=== PATIENT | male | born 1940 | race Caucasian/White ===

== ENCOUNTER 2018-01-07 05:29 | Inpatient (IN) | payer OTHER ==
[2018-01-07] MEDS ORDERED: ACETAMINOPHEN 500 MG TAB PO ONE (05:54)
[2018-01-07] MEDS ORDERED: ceFAZolin 2 GM/DEXTROSE 100 ML IV ONE (05:54)
[2018-01-07] MEDS ORDERED: GABAPENTIN 300 MG CAP PO ONE (05:54)
[2018-01-07] MEDS ORDERED: LR 1,000 ML IV ONE (05:56)
[2018-01-07] MEDS ORDERED: *PREOP 1000MG*TRANEX ACID/NS 100 ML IV ONE (06:00)
[2018-01-07] MEDS ORDERED: TRANEXAMIC ACID 1,000 MG in NS (SYRINGE) 50 ML IV ONE (06:00)
[2018-01-07] MEDS ORDERED: THROMBIN (BOVINE) 20,000 UNIT VIAL TP ONE (06:37)
[2018-01-07] MEDS ORDERED: BUPIVACAINE 0.25% 30 ML SDV ONE ×3 (06:37→12:18)
[2018-01-07] MEDS ORDERED: CHLORHEXIDINE GLUC HIBICLENS 118 ML BTL TP ONE (06:38)
[2018-01-07] MEDS ORDERED: EPINEPHrine 1 MG/ML INJ ONE ×2 (06:38→10:53)
[2018-01-07] MEDS ORDERED: BACITRACIN 50,000 UNITS/10 ML SYR IRR ONE (06:38)
--- NOTE | 2018-01-07 06:49 | PDANEPAE ---
ANE History of Present Illness C2-3 ANE Past Medical History - Cardiovascular History Hx Hypertension: Yes Hx Arrhythmias: No Hx Chest Pain: No Hx Coronary Artery / Peripheral Vascular Disease: No Hx CHF / Valvular Disease: No Hx Palpitations: No - Pulmonary History Hx COPD: No Hx Asthma/Reactive Airway Disease: No Hx Recent Upper Respiratory Infection: No Hx Oxygen in Use at Home: No Hx Sleep Apnea: No Sleep Apnea Screening Result - Last Documented: Positive - Neurologic History Hx Cerebrovascular Accident: No Hx Seizures: No Hx Dementia: No - Endocrine History Hx Diabetes: No - Renal History Hx Renal Disorders: No Renal History Comment: left kidney removed - Liver History Hx Hepatic Disorders: No - Neurological & Psychiatric Hx Hx Neurological and Psychiatric Disorders: Yes Neurological / Psychiatric History Comment: neck problems - Cancer History Hx Cancer: Yes Cancer History Comment: kidney,prostate - Congenital Disorder History Hx Congenital Disorders: No - GI History Hx Gastrointestinal Disorders: Yes Gastrointestinal History Comment: reflux - Other Health History Other Health History: swallowing difficulty since previous fusion. ent yesterday,ears itch,[place] - Chronic Pain History Chronic Pain: No - Surgical History Prior Surgeries: 1981 gallbladder. 1995 renal cell ca. 2005. 2006 cervical fusion. 2008 rotator cuff. 2012 R TKA. HERNIA REPAIR 2014. 2014 L TKA, radiation prostate CA ANE Review of Systems Review of Systems: - Exercise capacity Exercise capacity: >=4 METS METS (RN): 4 METS ANE Patient History - Allergies Allergies/Adverse Reactions: No Known Allergies Allergy (Verified 12/21/17 16:56) - Home Medications Home Medications: Lisinopril [Zestril 20 mg (*)] 20 mg PO DAILY 12/21/17 [Last Taken 01/06/18] Zolpidem Tartrate [Ambien] 10 mg PO HS 12/21/17 [Last Taken 01/05/18] - NPO status NPO Since - Liquids (Date): 01/06/18 NPO Since - Liquids (Time): 21:45 NPO Since - Solids (Date): 01/06/18 NPO Since - Solids (Time): 18:00 - Smoking Hx Smoking Status: Former smoker - Family Anes Hx Family Hx Anesthesia Complications: none ANE Labs/Vital Signs - Vital Signs Blood Pressure: 157/89 Heart Rate: 65 Respiratory Rate: 16 O2 Sat (%): 93 Height: 172.72 cm Weight: 81.647 kg ANE Physical Exam - Airway Neck exam: FROM Mallampati Score: Class 2 - Pulmonary Pulmonary: clear to auscultation - Cardiovascular Cardiovascular: regular rate and rhythym - ASA Status ASA Status: II ANE Anesthesia Plan Anesthesia Plan: general endotracheal anesthesia
[2018-01-07] MEDS ORDERED: DEXAMETHASONE 4 MG/ML VIAL IVP PRN (06:50)
[2018-01-07] MEDS ORDERED: oxyCODONE IR 5 MG TAB PO PRN ×2 (06:50→12:39)
[2018-01-07] MEDS ORDERED: fentaNYL 100 MCG/2 ML INJ IVP PRN (06:50)
[2018-01-07] MEDS ORDERED: MIDAZOLAM 2 MG/2 ML VIAL IVP ONE (06:50)
[2018-01-07] MEDS ORDERED: ONDANSETRON 4 MG/2 ML VIAL IVP PRN ×2 (06:50→12:39)
[2018-01-07] MEDS ORDERED: ALBUTEROL 3 ML DEYVIAL IH PRN (06:50)
[2018-01-07] MEDS ORDERED: NALOXONE HCL 0.4 MG/ML INJ IVP PRN ×2 (06:50→12:39)
[2018-01-07] MEDS ORDERED: REMIFENTANIL HCL 2 MG VIAL ONE (06:55)
[2018-01-07] MEDS ORDERED: HYDROmorphONE/DILAUDID 2 MG/ML INJ ONE (06:57)
[2018-01-07] MEDS ORDERED: PROPOFOL/EMULSION 500 MG/50 ML BOTTLE IV ONE ×4 (06:59→11:04)
[2018-01-07] MEDS ORDERED: HYDROmorphONE/DILAUDID 1 MG/ML INJ IVP PRN ×2 (07:00→12:39)
--- NOTE | 2018-01-07 07:00 | PDHPUP ---
History & Physical Update H&P update statement: This history and physical update is based on an assessment of the patient which was completed after admission or registration (within 24 hours), but prior to the surgery/procedure. H&P update: H&P reviewed & patient examined, no change in patient's condition since H&P completed
[2018-01-07] MEDS ORDERED: SUCCINYLCHOLINE CHLORIDE 200 MG/10 ML SYR IVP ONE (07:05)
[2018-01-07] MEDS ORDERED: DEXAMETHASONE 4 MG/ML VIAL ONE ×2 (07:06)
[2018-01-07] MEDS ORDERED: ONDANSETRON 4 MG/2 ML VIAL ONE (07:06)
[2018-01-07] MEDS ORDERED: RANITIDINE 50 MG/2 ML VIAL ONE (07:06)
[2018-01-07] MEDS ORDERED: LIDOCAINE 2% 5 ML SDV ONE (07:06)
[2018-01-07] MEDS ORDERED: POVIDONE-IODINE 30 GM OINTTUBE TP ONE (10:00)
[2018-01-07] MEDS ORDERED: ceFAZolin 1 GM VIAL ONE (10:44)
[2018-01-07] MEDS ORDERED: THROMBIN (BOVINE) 5,000 UNIT VIAL TP ONE (11:12)
[2018-01-07] MEDS ORDERED: PHENYLEPHRINE HCL 100 MCG/ML SYR ONE (11:30)
[2018-01-07] MEDS ORDERED: MAGNESIUM HYDROXIDE 30 ML UDCUP PO PRN (12:39)
[2018-01-07] MEDS ORDERED: HYDROmorphONE/DILAUDID 6 MG/30 ML PCA IV PRN (12:39)
[2018-01-07] MEDS ORDERED: BISACODYL 10 MG SUPP PR PRN (12:39)
[2018-01-07] MEDS ORDERED: LACTULOSE 20 GM/30 ML UDCUP PO PRN (12:39)
[2018-01-07] MEDS ORDERED: ONDANSETRON DISINTEGRATING 4 MG TAB PO PRN (12:39)
[2018-01-07] MEDS ORDERED: diphenhydrAMINE 25 MG CAP PO PRN (12:39)
--- NOTE | 2018-01-07 12:46 | SOAPPROG ---
SOAP Progress Note Assessment/Plan: Assessment: 77 yo M sp C3-6 plate removal, C2/3 ACDF and C2/3 posterior decompression/fusion Plan: stable to 3N hard collar when out of bed lovenox starts POD #3 please call with neuro changes 01/07/18 12:45 Subjective: + neck pain, no arm pain Objective: Vital Signs Temp Pulse Resp BP Pulse Ox 36.7 C 65 16 157/89 H 93 01/07/18 06:04 01/07/18 06:49 01/07/18 06:49 01/07/18 06:49 01/07/18 06:49 somnolent PERRL, no facial droop MARLEEN x 4 + light touch ICD10 Worksheet Patient Problems: Problems Problem Status Onset Fusion of spine of cervical region Acute - ICD10 Problem Qualifiers (1) Fusion of spine of cervical region
--- NOTE | 2018-01-07 12:47 | POSTOPPROG ---
Post Op Note Date of Operation: 01/07/18 Surgeon: Edson Rodriguez Dinkey Skinner: Kendall Anesthesiologist: Raimundo Anesthesia: GET(General Endotracheal) Pre-op Diagnosis: C2/3 stenosis Post-op Diagnosis: same Indication: progressive myelopathy Procedure: plate removal, C2/3 ACDF, C2/3 posterior decompression/fusion Findings: DJD/stenosis Inf/Abcess present in the surg proc area at time of surgery?: No EBL: 100-500 (200 ml) Complications: None Drains: Alex Cherry (anterior/posterior)
--- NOTE | 2018-01-07 13:16 | GOP ---
[f rep st] OPERATIVE REPORT DATE OF OPERATION: 01/07/2018 SURGEON: Edson Rodriguez MD NEUROSURGEON: Edson Rodriguez MD METALS ANALYST: CARMEN Escobedo ANESTHESIA: General endotracheal. PREOPERATIVE DIAGNOSIS: 1. Severe cervical stenosis with spinal cord compression secondary to herniated disk and ligamentum flavum hypertrophy causing circumferential canal compromise at C2-3. 2. Progressive myelopathic symptoms. POSTOPERATIVE DIAGNOSIS: 1. Severe cervical stenosis with spinal cord compression secondary to herniated disk and ligamentum flavum hypertrophy causing circumferential canal compromise at C2-3. 2. Progressive myelopathic symptoms. PROCEDURE PERFORMED: 1. Removal of C3 through C6 anterior cervical plate and exploration of spinal fusion, with complete C2-3 anterior cervical diskectomy, and arthrodesis with an 11 mm structural PEEK interbody spacer and local autograft. 2. Placement of a 25 mm L and K CastleLoc-P anterior cervical plate at C2-3 with use of intraoperati ve microscopy and fluoroscopy. FINDINGS: ESTIMATED BLOOD LOSS: 200 cc. INDICATIONS: The patient is a 77-year-old man with progressive myelopathic symptoms secondary to a l arge disk herniation and ligamentum flavum hypertrophy at C2-3, causing severe central canal stenosis and spinal cord compression. He presents for circumferential decompression and stabilization in con junction with removal of the plate at C3 through C6. DESCRIPTION OF PROCEDURE: After informed consent was obtained, the patient was taken to the operatin g room and placed in the supine position with the head in the retractor system after basel ine neuro monitoring signals were obtained. The anterior cervical region was prepped and draped in a sterile fashion, and the prior incision from the old C3 through C6 fusion was incised and carried do wn to the platysmal layer, which was then incised using the monopolar electrocautery. The avascular plane between the sternocleidomastoid and carotid sheath laterally and the strap muscles, trachea, an d esophagus medially was carried down to the prevertebral fascia, which was carefully incised with Me tzenbaum sutures. There was an extensive amount of scar tissue, but the old plate at C3 through C6 w as carefully dissected out and removed in the standard fashion. The fusion was inspected and explore d and noted to be solid. A 2nd incision was then required more rostrally, and this was carried through the platysmal layer and the avascular plane, as well down to the prevertebral fascia and the C2-3 osteophyte was carefully i dentified and dissected out and removed. The Paris distraction pins were inserted at C2-3; and, und er high-power microscopic visualization, a complete diskectomy was performed with preparation of the endplates and removal of the posterior longitudinal ligament. Bilateral foraminotomies were performe d as well. There was significant epidural venous engorgement and bleeding that was controlled with G elfoam soaked in thrombin, which was then removed. Following adequate decompression of both the cent ral canal and bilateral neural foramina, the endplates were carefully prepared, and an appropriately- sized 11 mm structural PEEK interbody spacer was packed with local autograft in the center and was pl aced in the interspace at C2-3 under fluoroscopic image guidance. The distraction was removed, and a n appropriately-sized 25 mm L and K CastleLoc-P anterior cervical plate was then placed and secured w ith self-drilling screws. A drain was then placed; and, after verification of good position of the p late screws and interbody spacers using biplanar fluoroscopy, the subcutaneous and intramuscular tiss ues were re-infiltrated with local anesthesia, and the wound was closed in a layered fashion using in terrupted Vicryl sutures followed by Steri-Strips on the skin. COMPLICATIONS: None. DISPOSITION: The patient remained intubated and was repositioned for the posterior portion operation . /[id number]/MODL
[2018-01-07] MEDS ORDERED: LORazepam 2 MG/ML INJ ONE (13:45)
--- NOTE | 2018-01-07 13:50 | GOP ---
[f rep st] OPERATIVE REPORT DATE OF OPERATION: 01/07/2018 SURGEON: Edson Rodriguez MD NEUROSURGEON: Edson Rodriguez MD GRADE RECORDER: CARMEN Escobedo ANESTHESIA: General endotracheal. PREOPERATIVE DIAGNOSIS: 1. Severe cervical stenosis with spinal cord compression secondary to herniated disk and ligamentum flavum hypertrophy causing circumferential canal compromise at C2-3. 2. Progressive myelopathic symptoms. POSTOPERATIVE DIAGNOSIS: 1. Severe cervical stenosis with spinal cord compression secondary to herniated disk and ligamentum flavum hypertrophy causing circumferential canal compromise at C2-3. 2. Progressive myelopathic symptoms. PROCEDURE PERFORMED: C2-3 laminectomy for decompression of spinal canal/spinal cord with exploration of spinal fusion at C3 through C6. Placement of a posterior nonsegmental (pedicle screw and lateral mass screw), fixation at C2-3 with a C2-3 posterolateral fusion with local autograft. Use of intrao perative microscopy, fluoroscopy, and computer volumetric stereotactic navigation with intraoperative neurophysiologic testing. FINDINGS: ESTIMATED BLOOD LOSS: 100 cc. INDICATIONS: The patient is a 77-year-old man with progressive myelopathic symptoms secondary to a l arge disk herniation and ligamentum flavum hypertrophy at C2-3, causing severe central canal stenosis and spinal cord compression. He presents for circumferential decompression and stabilization in con junction with removal of the plate at C3 through C6. DESCRIPTION OF PROCEDURE: After the anterior portion of the procedure was completed, the patient was repositioned prone with the head in a Yo header dock. The posterior cervical and a reas were prepped and draped in sterile fashion. After fluoroscopic localization of the correct leve l, the subcutaneous and intramuscular tissues were infiltrated with local anesthesia. A midline linear incision was then created over the C2-3 spinous process. This was carried down to t he fascial layer, which was then incised using monopolar electrocautery and carried through the subpe riosteal plane along the spinous process and lamina bilaterally. Intraoperative fluoroscopy was agai n utilized to verify the correct levels. Following this, the dissection was carried out laterally ov er the facet joints. A retractor was inserted, and a C2-3 laminectomy was performed with preservatio n of the very rostral end of C2 for testing of the navigational frame. The arm of the navigational s ystem was then brought in and 3D reconstruction images sent to the [facility] station. Using computer v olumetric stereotactic navigation, pedicle screws were placed at C2 bilaterally and lateral mass scre w fixation at C3 bilaterally. Each individual screw was tested neurophysiologically with monopolar e lectrostimulation and interpretation of the potentials by the surgeon. The arm of the neuronavigatio Wanderlust system was then utilized to recreate 3D reconstructed images in order to verify good position of the screws. Following this, the facet joints were carefully drilled out at C2-3, and the local autog raft placed in the facets and out laterally, which was also drilled out. The rods were then placed a nd secured; and, after re-verification of good position of the screws, rods, interbody spacers, and p late, using biplanar fluoroscopy, a drain was placed. The subcutaneous and intramuscular tissues wer e re-infiltrated with local anesthesia, and the wound was closed in a layered fashion using interrupt ed Vicryl sutures followed by Steri-Strips on the skin. COMPLICATIONS: None. DISPOSITION: The patient is currently in the process of being repositioned for extubation. /[id number]/MODL
[2018-01-07] MEDS ORDERED: ceFAZolin 2 GM/DEXTROSE 100 ML IV SCH (14:00)
[2018-01-07] MEDS ORDERED: LORazepam 2 MG/ML INJ IVP ONE ×2 (14:15→15:45)
[2018-01-07] MEDS: POLYETHYLENE GLYCOL 3350 17 GM PKT PO SCH ×2 (15:04→21:30)
[2018-01-07] MEDS: ACETAMINOPHEN 500 MG TAB PO SCH ×2 (15:04→21:38)
[2018-01-07] MEDS: GABAPENTIN 300 MG CAP PO SCH ×2 (15:04→21:38)
[2018-01-07] MEDS: NS 1,000 ML IV SCH (15:04)
--- NOTE | 2018-01-07 16:10 | POSTANESTH ---
Post Anesthetic Evaluation Cardiovascular Status: Normal, Stable Respiratory Status: Normal, Stable Level of Consciousness/Mental Status: Can Participate in Eval, Alert and Oriented Pain Control: Adequate, Prn Tx Ordered Nausea/Vomiting Control: Adequate, Prn Tx Ordered Complications Possibly Related to Anesthesia: None Noted
[2018-01-07] MEDS: ceFAZolin 2 GM/DEXTROSE 100 ML IV SCH (18:07)
--- NOTE | 2018-01-07 19:15 | PDMN ---
Medical Necessity Medical necessity: [facility] IP only surgery; C3-6 plate removal, C2/3 ACDF & C2/3 posterior decompression/cervical fusion (cpt 22066)
[2018-01-07] MEDS: SENNOSIDES/DOCUSATE SODIUM TAB PO SCH (20:01)
[2018-01-07] MEDS: morphINE SR 15 MG TAB PO SCH (20:01)
[2018-01-07] MEDS: FAMOTIDINE 20 MG TAB PO SCH (20:01)
[2018-01-08] MEDS: ceFAZolin 2 GM/DEXTROSE 100 ML IV SCH (01:34)
[2018-01-08] MEDS: NS 1,000 ML IV SCH (04:56)
[2018-01-08] MEDS: GABAPENTIN 300 MG CAP PO SCH ×3 (05:22→22:01)
[2018-01-08] MEDS: METHOCARBAMOL 750 MG TAB PO PRN (05:24)
[2018-01-08 05:55] LABS: PLATELET COUNT 146 10^3/uL (150-400)
[2018-01-08] MEDS: ACETAMINOPHEN 500 MG TAB PO SCH ×3 (09:42→22:01)
[2018-01-08] MEDS: LISINOPRIL 20 MG TAB PO SCH (11:14)
[2018-01-08] MEDS: SENNOSIDES/DOCUSATE SODIUM TAB PO SCH ×2 (11:14→22:02)
[2018-01-08] MEDS: morphINE SR 15 MG TAB PO SCH ×2 (11:15→22:01)
[2018-01-08] MEDS: FAMOTIDINE 20 MG TAB PO SCH ×2 (11:16→22:02)
[2018-01-08] MEDS: POLYETHYLENE GLYCOL 3350 17 GM PKT PO SCH ×3 (11:21→22:03)
--- NOTE | 2018-01-08 12:01 | SOAPPROG ---
SOAP Progress Note Assessment/Plan: Assessment: 77 yo male POD #1 s/p C2/3 ACDF and posterior decompression fusion. Doing well Pain well controlled Dyshpagia as expected Plan: PT/OT/ST Continue ant/post LJ drains Soft texture diet. Cervical xrays today when he can tolerate it. 01/08/18 11:57 01/08/18 12:00 Subjective: Out of bed in chair. Pain well controlled. He has posterior neck "stiffness." Denies worsened symptoms Objective: Vital Signs Temp Pulse Resp BP Pulse Ox 37.1 C 61 18 127/76 H 98 01/08/18 07:47 01/08/18 07:47 01/08/18 07:47 01/08/18 11:14 01/08/18 07:47 Laboratory Results 01/08/18 05:21 01/08/18 05:21 01/07/18 01/08/18 01/09/18 05:59 05:59 05:59 Intake Total 2298 1383 Output Total 1200 Balance 1098 1383 Neuro WATKINS. sens +LT Alert and oriented x 4 follows commands Ant LJ: 60 ml Post LJ: 90 ml Dressing x 2 CDI ICD10 Worksheet Patient Problems: Problems Problem Status Onset Fusion of spine of cervical region Acute
--- NOTE | 2018-01-08 16:58 | ASMTCMCOM ---
CM Note CM Note Notes: Pt is s/p cervical fusion C2/3. PT/OT recommending SNF. Pt and his requesting Center at [facility] in [facility] as they live there. Sent referral via [facility]. Spoke with Admissions, pt is accepted. If he discharges over the weekend call [facility]fs[facility] [place] [phone]. No PASRR needed at this facility. CM will continue to follow. Date Signed: 01/08/2018 04:57 PM Electronically Signed By:ISMAEL Lopez
[2018-01-09] MEDS: GABAPENTIN 300 MG CAP PO SCH ×3 (05:52→21:18)
[2018-01-09] MEDS: ACETAMINOPHEN 500 MG TAB PO SCH ×3 (05:52→21:18)
[2018-01-09] MEDS: METHOCARBAMOL 750 MG TAB PO PRN (05:52)
--- NOTE | 2018-01-09 07:30 | SOAPPROG ---
SOAP Progress Note Assessment/Plan: Assessment: 77 yo male POD #2 s/p C2/3 ACDF and posterior decompression fusion. Doing well minimal pain today, just neck "stiffness" Dyshpagia as expected but able to eat Plan: PT/OT/ST d/c anterior drain (25), d/c posterior drain tomorrow (75) Soft texture diet. Cervical xrays show good alignment and intact hardware plan to d/c to SNF/rehab tomorrow 01/09/18 07:27 01/09/18 07:29 Subjective: no new events, doing well Objective: Vital Signs Temp Pulse Resp BP Pulse Ox 36.5 C 62 16 82/53 L 90 L 01/09/18 07:21 01/09/18 07:21 01/09/18 07:21 01/09/18 07:21 01/09/18 07:21 Laboratory Results 01/08/18 05:21 01/08/18 05:21 01/08/18 01/09/18 01/10/18 05:59 05:59 05:59 Intake Total 2298 1833 Output Total 1200 300 Balance 1098 1533 AAOx3, full strength and sensation, no drift, dressings c/d/i - Pending Discharge Pending Discharge Within 24 Hours: Yes Pending Discharge Date: 01/10/18 Pending Discharge Time: 11:00 ICD10 Worksheet Patient Problems: Problems Problem Status Onset Fusion of spine of cervical region Acute
[2018-01-09] MEDS ORDERED: NS 500 ML IV ONE (08:00)
[2018-01-09] MEDS: POLYETHYLENE GLYCOL 3350 17 GM PKT PO SCH ×3 (09:28→21:18)
[2018-01-09] MEDS: SENNOSIDES/DOCUSATE SODIUM TAB PO SCH ×2 (09:29→21:18)
[2018-01-09] MEDS: FAMOTIDINE 20 MG TAB PO SCH ×2 (09:29→21:18)
[2018-01-09] MEDS: morphINE SR 15 MG TAB PO SCH ×2 (09:32→23:15)
[2018-01-09] MEDS: LISINOPRIL 20 MG TAB PO SCH (09:32)
--- NOTE | 2018-01-09 15:39 | ASMTCMCOM ---
CM Note CM Note Notes: Pt and family had questions about transport to the Center at [facility] in [facility]. Spoke with Afsaneh in admissions. She clled a local [facility] compant, Billy, but they do not have any availability for tomorrow. She checked with [facility] and they would charge over $1,000. Spoke with pt and he will call his family to see if they are willing to do it. CM to follow. Date Signed: 01/09/2018 03:38 PM Electronically Signed By:Clementina Hirsch LCSW
[2018-01-10] MEDS: GABAPENTIN 300 MG CAP PO SCH ×3 (06:19→21:41)
[2018-01-10] MEDS: ACETAMINOPHEN 500 MG TAB PO SCH ×3 (06:19→21:40)
[2018-01-10] MEDS: POLYETHYLENE GLYCOL 3350 17 GM PKT PO SCH ×3 (08:30→21:41)
[2018-01-10] MEDS: ENOXAPARIN 40 MG/0.4 ML SYR SC SCH (08:30)
[2018-01-10] MEDS: SENNOSIDES/DOCUSATE SODIUM TAB PO SCH ×2 (08:30→21:40)
[2018-01-10] MEDS: FAMOTIDINE 20 MG TAB PO SCH ×2 (08:31→21:39)
[2018-01-10] MEDS: LISINOPRIL 20 MG TAB PO SCH (08:31)
[2018-01-10] MEDS: morphINE SR 15 MG TAB PO SCH ×2 (08:36→21:40)
--- NOTE | 2018-01-10 10:02 | SOAPPROG ---
SOAP Progress Note Assessment/Plan: Assessment: 77 yo male POD #3 s/p C2/3 ACDF and posterior decompression fusion. Doing well pain slightly worse today but tolerable Dyshpagia as expected but able to eat, switched to Dysphagia 2 diet Plan: PT/OT/ST both LJ drains out continue dysphagia 2 diet per speech therapy. Cervical xrays show good alignment and intact hardware plan to d/c to SNF/rehab Thursday01/10/18 10:00 Subjective: c/o slightly more neck pain/stiffness Objective: Vital Signs Temp Pulse Resp BP Pulse Ox 36.6 C 62 16 129/66 H 91 L 01/10/18 08:00 01/10/18 08:00 01/10/18 08:00 01/10/18 08:31 01/10/18 08:00 Laboratory Results 01/08/18 05:21 01/08/18 05:21 01/09/18 01/10/18 01/11/18 05:59 05:59 05:59 Intake Total 1833 Output Total 300 801 Balance 1533 -801 AAOx3, full strength and sensation, no drift, c-collar in place, dressings c/d/i - Pending Discharge Pending Discharge Within 24 Hours: Yes Pending Discharge Date: 01/11/18 Pending Discharge Time: 11:00 ICD10 Worksheet Patient Problems: Problems Problem Status Onset Fusion of spine of cervical region Acute
--- NOTE | 2018-01-10 12:14 | ASMTCMCOM ---
CM Note CM Note Notes: Spoke with Dr Chester re pt's d/c. He is keeping pt until tomorrow. D/C plan is to Center at [facility] in [place]. Spoke with Afsaneh who is their weekend liaison. They were prepared to accept him today however will keep him as pending for admission tomorrow. CM needs to call Admissions after 9:30 Thursday [phone] to discuss transportation. Apparently the [facility] has a contract with [facility] and Afsaneh thinks they will be able to arrange his transfer through them. The earlier in the day this is arranged, the better. Informed pt.. Date Signed: 01/10/2018 12:14 PM Electronically Signed By:ISMAEL Lopez
[2018-01-11] MEDS: GABAPENTIN 300 MG CAP PO SCH (05:35)
[2018-01-11] MEDS: ACETAMINOPHEN 500 MG TAB PO SCH ×2 (05:35→11:27)
[2018-01-11 07:20] VITALS: BP 123/76
--- NOTE | 2018-01-11 08:12 | NEUSURGPN ---
Date of Surgery: 01/07/18 Post Op Day: 4 Assessment/Plan: Assessment: 77 yo male POD #4 s/p C2/3 ACDF and posterior decompression fusion. Plan: PT/OT/ST continue dysphagia 2 diet per speech therapy. Cervical xrays show good alignment and intact hardware plan to d/c to SNF/rehab today, has prescriptions Discussed patient with Dr Jorge Subjective: Doing well, sitting in chair Objective: AxO x3 PERRLA 5/5 BUE Incision CDI, dressings CDI Collar in place Neuro Check Frequency: per routine Urinary Catheter in Place: No Catheter Insertion Date: 01/07/18 - Physician Discussed Patient with DrAdeline: Jennifer Neurosurgery Physical Exam - Vitals, I&O, Labs I and O 01/10/18 01/11/18 01/12/18 05:59 05:59 05:59 Intake Total 1625 Output Total 801 375 Balance -801 1250 Intake: Oral (ml) 1625 Output: Urine (ml) 801 375 Toilet 1 Urinal 800 375 Other: Intake Quantity Yes Sufficient Number of Voids Incontinence 1 Toilet 1 2 Urinal 1 Number of Stools Toilet 1 Vital Signs Temp Pulse Resp BP Pulse Ox 36.3 C 75 15 123/76 H 94 01/11/18 07:19 01/11/18 07:19 01/11/18 07:19 01/11/18 07:19 01/11/18 07:19 Laboratory Results 01/08/18 05:21 01/08/18 05:21 ICD10 Worksheet Patient Problems: Problems Problem Status Onset Fusion of spine of cervical region Acute
--- NOTE | 2018-01-11 08:17 | PDIAF ---
- Diagnosis Diagnosis: S/P ACDF C2-3, posterior C2-3 decompression and fusion Code Status: Full Code - Medication Management Discharge Medications: Medications to Continue on Transfer Lisinopril [Zestril 20 mg (*)] 20 mg PO DAILY 12/21/17 [Last Taken 01/06/18] Acetaminophen [Tylenol ES 500 mg (*)] 1,000 mg PO Q8HRS tab 01/11/18 [Last Taken Unknown] Methocarbamol [Robaxin 750 mg (*)] 750 mg PO QID PRN tab 01/11/18 [Last Taken Unknown] Sennosides/Docusate Sodium [Senokot-S] 1 - 2 tab PO BID tab 01/11/18 [Last Taken Unknown] morphINE SR [Ms Contin/Oramorph 15 mg (*)] 15 mg PO BID tab 01/11/18 [Last Taken Unknown] oxyCODONE IR [Oxycodone Ir (*)] 5 - 10 mg PO Q4HRS PRN tab 01/11/18 [Last Taken Unknown] Discharge Medications: Refer to the Discharge Home Medication list for PRN reason. PICC Care - Routine: N/A - Orders Services needed: Physical Therapy, Occupational Therapy Diet Recommendation: no restrictions on diet Diet Texture: Dysphagia 2 - Mechanically Altered - Chopped, Ground, Thin Liquids , Meds Whole in Puree Wound Care Instructions: Ok to shower daily Activity/Weight Bearing Restrictions: No bending or twisting Equipment: Wear cervical collar at all times Additional Instructions: No bending or twisting neck Do not lift greater than 10 pounds Wear cervical collar at all times - Follow Up Care Current Providers and Referrals: SIGIFREDO LY [Primary Care Provider] - Edson Rodriguez MD [Medical Doctor] - follow up in 2 weeks
[2018-01-11] MEDS: ENOXAPARIN 40 MG/0.4 ML SYR SC SCH (09:09)
[2018-01-11] MEDS: morphINE SR 15 MG TAB PO SCH (09:10)
[2018-01-11] MEDS: FAMOTIDINE 20 MG TAB PO SCH (09:10)
[2018-01-11] MEDS: SENNOSIDES/DOCUSATE SODIUM TAB PO SCH (09:13)
[2018-01-11] MEDS: POLYETHYLENE GLYCOL 3350 17 GM PKT PO SCH (09:13)
[2018-01-11] MEDS: LISINOPRIL 20 MG TAB PO SCH (09:14)
[2018-01-11] MEDS: METHOCARBAMOL 750 MG TAB PO PRN (11:28)
--- NOTE | 2018-01-11 11:51 | ASMTCMCOM ---
CM Note CM Note Notes: Pt medically stable for d/c to Center at [facility]. Orders sent in [employer]. MARY Paredes to call report. Pt family to transport. Pt has pt hard script narcotics and will give them to the facility. Date Signed: 01/11/2018 11:51 AM Electronically Signed By:ISMAEL Alegria
--- NOTE | 2018-01-11 15:42 | ASDISCHSUM ---
Discharge Information Plan Status:SNF Medically Cleared to Leave: Discharge Date:01/11/2018 11:37 AM D/C Disposition:[facility] Facility ADT D/C Disposition:[facility] Facility Projected Discharge Date:01/11/2018 11:00 AM Transportation at D/C:Family Discharge Delay Reason: Follow-Up Date:01/11/2018 11:00 AM Discharge Slot: Final Diagnosis: Placement Information Referral Type:*[facility]/SNF Referral ID:[id number] Provider Name:Heber Moreno Address 1:[address] Address 2: City:[place] Selection Factors: State:[place] Patient Contact Information Contact Name:MADHAVI Relationship: Address:[address] City:[place] Alternate Phone: State/Zip Code:[place] [address] Email: Financial Information Financial Class:Medicare Primary Plan Desc:MEDICARE INPATIENT Primary Plan Number:[id number] Secondary Plan Desc:[facility] Secondary Plan Number:[id number] Assessment Information [facility] CM Progress Note CM Note CM Note Notes: Pt is s/p cervical fusion C2/3. PT/OT recommending SNF. Pt and his requesting Center at [facility] in [facility] as they live there. Sent referral via [employer]. Spoke with Admissions, pt is accepted. If he discharges over the weekend call [facility] [place] [phone]. No PASRR needed at this facility. CM will continue to follow. Date Signed: 01/08/2018 04:57 PM Electronically Signed By:ISMAEL Lopez [facility] CM Progress Note CM Note CM Note Notes: Pt and family had questions about transport to the Center at [facility] in [facility]. Spoke with Afsaneh in admissions. She clled a local [facility] compant, Billy, but they do not have any availability for tomorrow. She checked with [facility] and they would charge over $1,000. Spoke with pt and he will call his family to see if they are willing to do it. CM to follow. Date Signed: 01/09/2018 03:38 PM Electronically Signed By:Clementina Hirsch LCSW [facility] CM Progress Note CM Note CM Note Notes: Spoke with Dr Nemo camejo pt's d/c. He is keeping pt until tomorrow. D/C plan is to Center at [facility] in [place]. Spoke with Afsaneh who is their weekend liaison. They were prepared to accept him today however will keep him as pending for admission tomorrow. CM needs to call Admissions after 9:30 Thursday [phone] to discuss transportation. Apparently the Center at [facility] has a contract with [facility] and Afsaneh thinks they will be able to arrange his transfer through them. The earlier in the day this is arranged, the better. Informed pt.. Date Signed: 01/10/2018 12:14 PM Electronically Signed By:ISMAEL Lopez [facility] CM Progress Note CM Note CM Note Notes: Pt medically stable for d/c to Center at [facility]. Orders sent in [employer]. RN Lena to call report. Pt family to transport. Pt has pt hard script narcotics and will give them to the facility. Date Signed: 01/11/2018 11:51 AM Electronically Signed By:ISMAEL Alegria Intervention Information Intervention Type:*IM-Signed Date of Service:01/08/2018 02:25 PM Patient Type:Inpatient Staff Member:Latonia Fuentes Hours: Discipline: Severity: Comment:
== END 2018-01-11 11:37 | DRG 454 ==
LOC: F3N 05:29
PROVIDERS: ADMIT Neurological Surgery; ATTEND Neurological Surgery
PROC: 0RT30ZZ Resection of Cervical Vertebral Disc, Open Approach (ICD-10-PCS; principal; 2018-01-07 07:15)
PROC: 00NW0ZZ Release Cervical Spinal Cord, Open Approach (ICD-10-PCS; principal; 2018-01-07 07:15)
PROC: 8E09XBZ Computer Assisted Procedure of Head and Neck Region (ICD-10-PCS; principal; 2018-01-07 07:15)
PROC: 0RG10A0 Fusion of Cervical Vertebral Joint with Interbody Fusion Device, Anterior Approach, Anterior Column, Open Approach (ICD-10-PCS; principal; 2018-01-07 07:15)
PROC: 0RG1071 Fusion of Cervical Vertebral Joint with Autologous Tissue Substitute, Posterior Approach, Posterior Column, Open Approach (ICD-10-PCS; principal; 2018-01-07 07:15)
PROC: 4A1004G Monitoring of Central Nervous Electrical Activity, Intraoperative, Open Approach (ICD-10-PCS; principal; 2018-01-07 07:15)
DX: M48.02 Spinal stenosis, cervical region (principal); M50.00 Cervical disc disorder with myelopathy, unspecified cervical region; M50.21 Other cervical disc displacement, high cervical region; M50.30 Other cervical disc degeneration, unspecified cervical region; M51.36 Other intervertebral disc degeneration, lumbar region; M51.34 Other intervertebral disc degeneration, thoracic region; I10 Essential (primary) hypertension
CPT/HCPCS: 92526-GN; 92610-GN; 97112-GP; 97116-GP; 97161-GP; 97166-GO; 97535-GO; C1713; G8978-GP-CK; G8979-GP-CI; G8987-GO-CK; G8988-GO-CJ; G8996-GN-CJ; G8997-GN-CI; J0171; J0330; J0690; J1100; J1170; J1650; J2060; J2250; J2370; J2405; J2704; J2780